=== PATIENT | male | born 2000 | race Caucasian/White ===

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

== ENCOUNTER 2018-11-23 14:08 | Emergency (ER) | payer OTHER ==
[~2018-11-23] VITALS: Ht 182.9 cm; Wt 90.9 kg
[~2018-11-23 14:08] MED LIST: ACET1TAB55 PO; ADV500INH INH; ADVAIR; ALBU83IN; ATRO0.063; ATRO0.063 INH; BANO25CA; CETI10TA PO; CLAR1TAB2 PO; DOXY-350 PO; IPRA0.00 INH; MONT10TA2 PO; MUCI600T31 PO; PRED10TA2 PO; PRED20TA; PROAAER10 INH; QVAR80AE10 IN; QVAR80AE10 INH; TYLE325T5 PO; ZYRT10CA PO
[2018-11-23] MEDS ORDERED: LIDO1PAD (14:22)
[2018-11-23 15:21] LABS: BASO % 0.3 % (0.0-1.0); EOS # 0.2 10^3/uL (0.0-0.50); EOS % 1.3 % (0.0-3.0); HEMATOCRIT 42.8 % (42.0-52.0); HEMOGLOBIN 14.8 g/dl (13.5-17.5); LYMPH % 25.3 % (24.0-44.0); MEAN CORPUSCULAR HEMOGLOBIN 29.2 pg (27.0-33.0); MEAN CORPUSCULAR HGB CONC 34.6 g/dl (32.0-36.5); MEAN CORPUSCULAR VOLUME 84.4 fl (80.0-96.0); MONO # 0.9 10^3/uL (0.0-0.8); MONO % 7.7 % (0.0-5.0); NEUTROPHILS # 7.8 10^3/uL (1.8-7.7); NEUTROPHILS % 65.2 % (36.0-66.0); PLATELET COUNT, AUTOMATED 226 10^3/uL (150-450); RED BLOOD COUNT 5.07 10^6/uL (4.30-6.10)
[2018-11-23 15:34] LABS: ALBUMIN 4.3 GM/DL (3.2-5.2); ALT/SGPT 17 U/L (12-78); BILIRUBIN,DIRECT 0.2 MG/DL (0.0-0.2); BILIRUBIN,TOTAL 0.7 MG/DL (0.2-1.0); BLOOD UREA NITROGEN 11 MG/DL (7-18); C REACTIVE PROTEIN QUANTITATIV < 0.30 MG/DL (0.00-0.30); CALCIUM LEVEL 9.3 MG/DL (8.5-10.1); CARBON DIOXIDE LEVEL 26 MEQ/L (21-32); CHLORIDE LEVEL 104 MEQ/L (98-107); CREATININE FOR GFR 0.93 MG/DL (0.70-1.30); GLUCOSE, FASTING 86 MG/DL (70-100); POTASSIUM SERUM 4.2 MEQ/L (3.5-5.1); SODIUM LEVEL 140 MEQ/L (136-145); TOTAL PROTEIN 7.3 GM/DL (6.4-8.2)
[2018-11-23 16:02] LABS: ERYTHROCYTE SEDIMENTATION RATE 3 mm/hr (0-15)
[2018-11-23] MEDS ORDERED: KETOROLAC TROMETHAMINE 10 MG TAB PO ONE (18:15)
[2018-11-23] MEDS ORDERED: NORCOTAB PO (18:53)
[2018-11-23] MEDS ORDERED: PRED20TA PO (18:53)
[2018-11-23 19:09] VITALS: BP 121/68
--- NOTE | 2018-11-23 20:06 | REP ---
LEFT SHOULDER, THREE VIEWS: HISTORY: Shoulder injury. There is no acute fracture or dislocation. The joint spaces are normal in appearance. IMPRESSION:There is no acute fracture or dislocation. Electronically Signed by Beto Valdez MD 11/24/2018 08:25 A
== END 2018-11-23 19:16 | disposition home or self-care (01) ==
LOC: M ED 14:08
DX: M25.512 Pain in left shoulder (principal); G89.29 Other chronic pain; J45.909 Unspecified asthma, uncomplicated

== ENCOUNTER 2018-11-25 13:03 | Emergency (ER) | payer OTHER ==
[~2018-11-25] VITALS: Ht 182.9 cm; Wt 90.9 kg
[~2018-11-25 13:03] MED LIST changes: +LIDO1PAD; +NORCOTAB PO; +PRED20TA PO
[2018-11-25 13:11] VITALS: BP 131/68
[2018-11-25] MEDS ORDERED: NS 1,000 ML IV ONE (13:45)
[2018-11-25 14:05] LABS: BASO % 0.1 % (0.0-1.0); EOS % 0.1 % (0.0-3.0); HEMATOCRIT 44.8 % (42.0-52.0); HEMOGLOBIN 15.6 g/dl (13.5-17.5); LYMPH # 1.5 10^3/uL (1.5-6.5); LYMPH % 11.3 % (24.0-44.0); MEAN CORPUSCULAR HEMOGLOBIN 29.1 pg (27.0-33.0); MEAN CORPUSCULAR HGB CONC 34.8 g/dl (32.0-36.5); MEAN CORPUSCULAR VOLUME 83.6 fl (80.0-96.0); MONO # 0.3 10^3/uL (0.0-0.8); MONO % 2.5 % (0.0-5.0); NEUTROPHILS # 11.7 10^3/uL (1.8-7.7); NEUTROPHILS % 85.6 % (36.0-66.0); PLATELET COUNT, AUTOMATED 247 10^3/uL (150-450); RED BLOOD COUNT 5.36 10^6/uL (4.30-6.10); WHITE BLOOD COUNT 13.6 10^3/uL (4.0-10.0)
--- NOTE | 2018-11-25 14:12 | REP ---
Left rib series: Five views including PA chest. History: Pain. Worse with movement or palpation. Comparison radiographs November 12, 2017. Findings: PA chest radiograph is normal. There is no evidence of pneumothorax or hydrothorax. Heart is not enlarged. The lung burnett are clear. Multiple views of the left rib cage demonstrate no evidence of rib fracture or bony destructive lesion. Impression: Negative left rib radiographs. No rib fracture seen. Electronically Signed by Jarvis Roth MD 11/25/2018 02:04 P
[2018-11-25 14:18] LABS: INR 1.09; PROTHROMBIN TIME 14.2 SECONDS (12.1-14.4)
[2018-11-25 14:19] LABS: PARTIAL THROMBOPLASTIN TIME 34.9 SECONDS (25.4-37.6)
[2018-11-25 14:23] LABS: D-DIMER QUANT < 270 ng/ml (<500)
[2018-11-25 14:46] LABS: BLOOD UREA NITROGEN 13 MG/DL (7-18); CALCIUM LEVEL 9.5 MG/DL (8.5-10.1); CARBON DIOXIDE LEVEL 29 MEQ/L (21-32); CHLORIDE LEVEL 104 MEQ/L (98-107); CK-MB VALUE MASS < 1.0 NG/ML (<3.6); CPK CREATINE PHOSPHOKINASE 101 U/L (39-308); CREATININE FOR GFR 0.94 MG/DL (0.70-1.30); GLUCOSE, FASTING 112 MG/DL (70-100); MB/CK RELATIVE INDEX 0.99 (< OR =4); POTASSIUM SERUM 4.1 MEQ/L (3.5-5.1); SODIUM LEVEL 139 MEQ/L (136-145); TROPONIN I < 0.02 NG/ML (< 0.10)
--- NOTE | 2018-11-26 07:34 | ECGEPIP ---
Stationary ECG Study [facility] - ED Test Date: 2018-11-25 Pat Name: JEFF NGUYEN Department: Room: - Gender: M Director Stars: christopher : 2000 Requested By: Belinda Lucero Order Number: [id number] Reading MD: Moi Moses Measurements Intervals [place] Rate: 74 P: 54 [place]: 170 QRS: 67 QRSD: 94 T: 44 QT: 363 QTc: 403 Interpretive Statements SINUS RHYTHM BENIGN EARLY REPOLARIZATION SIMILAR TO 11/12/17 Electronically Signed On 11-26-2018 7:34:27 EST by Mio Moses
== END 2018-11-25 15:38 | disposition home or self-care (01) ==
LOC: M ED 13:03
DX: R07.89 Other chest pain (principal); E03.9 Hypothyroidism, unspecified

== ENCOUNTER 2019-07-19 15:38 | Emergency (ER) | payer OTHER ==
[~2019-07-19] VITALS: Ht 182.9 cm; Wt 88.9 kg
[~2019-07-19 15:38] MED LIST changes: +HYDR-3715 PO; -NORCOTAB PO
[2019-07-19] MEDS ORDERED: SYNT25TA (15:44)
[2019-07-19] MEDS ORDERED: NAPR-885 (15:44)
[2019-07-19] MEDS ORDERED: ACETAMINOPHEN TAB 650MG DOSE (2X325MG) PO ONE (17:15)
--- NOTE | 2019-07-19 18:18 | REPVR ---
EXAM: CT Cervical Spine Without Contrast EXAM DATE/TIME: 07/19/2019 5:36 PM CLINICAL HISTORY: 18 years old, male; Neck pain; Additional info: Vertebral tenderness, ongoing 2 weeks TECHNIQUE: Imaging protocol: Computed tomography images of the cervical spine without contrast. Radiation optimization: All CT scans at this facility use at least one of these dose optimization techniques: automated exposure control; mA and/or kV adjustment per patient size (includes targeted exams where dose is matched to clinical indication); or iterative reconstruction. COMPARISON: No relevant prior studies available. FINDINGS: Vertebrae: No acute fracture. Normal alignment. Discs/Spinal canal/Neural foramina: No spinal stenosis. No neural foraminal narrowing. Soft tissues: Unremarkable. Lungs: Lung apices are normal. IMPRESSION: No acute findings. Electronically signed by: Jailyn Spann On 07/19/2019 18:18:05 PM
[2019-07-19] MEDS ORDERED: LIDOCAINE 5% (LIDODERM) PATCH TD ONE (18:30)
[2019-07-19 18:38] VITALS: BP 122/71
[2019-07-19] MEDS ORDERED: **NOTE PATIENT COMMENT** MISC XX SCH (21:00)
== END 2019-07-19 18:39 | disposition home or self-care (01) ==
LOC: M ED 15:38
DX: S16.1XXA Strain of muscle, fascia and tendon at neck level, initial encounter (principal); X50.0XXA Overexertion from strenuous movement or load, initial encounter; Y92.9 Unspecified place or not applicable; E03.9 Hypothyroidism, unspecified; J45.909 Unspecified asthma, uncomplicated; Z79.899 Other long term (current) drug therapy

== ENCOUNTER 2019-10-14 23:04 | Emergency (ER) | payer OTHER ==
[~2019-10-14] VITALS: Ht 182.9 cm; Wt 86.4 kg
[~2019-10-14 23:04] MED LIST changes: +NAPR-885; +SYNT25TA
[2019-10-14 23:05] VITALS: BP 136/78
[2019-10-14] MEDS ORDERED: AFRI0.058 (23:10)
[2019-10-15] MEDS ORDERED: LIDOCAINE VISCOUS 2% SOLN 15ML UDC SS ONE
== END 2019-10-15 | disposition home or self-care (01) ==
LOC: M ED 23:04
DX: R09.82 Postnasal drip (principal); J45.909 Unspecified asthma, uncomplicated; E03.9 Hypothyroidism, unspecified; Z79.899 Other long term (current) drug therapy

== ENCOUNTER → 2022-12-10 | Outpatient (CLI) | payer OTHER ==
[~2022-12-10] MED LIST changes: +ALBU2.5V10; +ALBU8.5H INH; -ALBU83IN; -BANO25CA; +DIPH-319; -DOXY-350 PO; +DOXY-444 PO; +IBUP-1426 PO; -MONT10TA2 PO; +MONT10TA97 PO; +OXYM15SP2; +PROT1TAB2 PO
== END ==
LOC: M LABSMTC 09:22
PROVIDERS: ATTEND Anesthesiology
DX: Z01.812 Encounter for preprocedural laboratory examination (principal); Z11.52 Encounter for screening for COVID-19

== ENCOUNTER 2022-12-13 09:45 | Day surgery (SDC) | payer OTHER ==
[~2022-12-13] VITALS: Ht 182.9 cm; Wt 68.5 kg
[~2022-12-13 09:45] MED LIST changes: +NS 1,000 ML IV ONE
[2022-12-13] MEDS ORDERED: LIDOCAINE 2% 100MG/5ML SDV (FOR ANES.) As Ordered ONE (10:09)
[2022-12-13] MEDS ORDERED: propofoL 200 MG/20 ML VIAL As Ordered ONE ×2 (10:09→10:10)
[2022-12-13] MEDS ORDERED: fentaNYL 100 MCG/2 ML INJECTION As Ordered ONE (11:11)
[2022-12-13 12:15] VITALS: BP 101/61
== END 2022-12-13 12:25 | disposition home or self-care (01) ==
LOC: M OPP 09:45
PROVIDERS: ATTEND Internal Medicine Gastroenterology
DX: K64.4 Residual hemorrhoidal skin tags (principal); K64.8 Other hemorrhoids; K63.89 Other specified diseases of intestine; K30 Functional dyspepsia; K22.81 Esophageal polyp; K29.70 Gastritis, unspecified, without bleeding; Z79.51 Long term (current) use of inhaled steroids; Z79.899 Other long term (current) drug therapy; E03.9 Hypothyroidism, unspecified; J45.909 Unspecified asthma, uncomplicated; F17.220 Nicotine dependence, chewing tobacco, uncomplicated
CPT/HCPCS: 43239; 45380; 88305; J3010

== ENCOUNTER → 2023-12-26 | Outpatient (REF) | payer OTHER ==
[~2023-12-26] MED LIST changes: -DIPH-319; +DIPH-429; -NS 1,000 ML IV ONE
[2023-12-26 17:27] LABS: APPEARANCE, URINE CLEAR (CLEAR); BACTERIA, URINE AUTO NEGATIVE (NEGATIVE); BILIRUBIN, URINE AUTO NEGATIVE (NEGATIVE); BLOOD, URINE BLOOD 1+ (NEGATIVE); COLOR, URINE STRAW (YELLOW); GLUCOSE, URINE (UA) AUTO NEGATIVE (NEGATIVE); KETONE, URINE AUTO NEGATIVE (NEGATIVE); LEUKOCYTE ESTERASE, URINE AUTO NEGATIVE (NEGATIVE); MUCUS, URINE SMALL (NEGATIVE); NITRITE, URINE AUTO NEGATIVE (NEGATIVE); PROTEIN, URINE AUTO NEGATIVE (NEGATIVE); RBC, URINE AUTO 2 /HPF (0-3); SPECIFIC GRAVITY URINE AUTO 1.005 (1.002-1.035); SQUAMOUS EPITHELIAL CELL UR AU 0 /HPF (0-6); UROBILINOGEN, URINE AUTO 0.2 mg/dL (0.0-2.0); WBC, URINE AUTO 0 /HPF (0-3)
== END ==
LOC: M SMT 17:02
PROVIDERS: ATTEND Physician Assistant
DX: R31.21 Asymptomatic microscopic hematuria (principal)